=== PATIENT | male | born 1980 | race Caucasian/White ===

== ENCOUNTER 2020-10-29 09:56 | Day surgery (SDC) | payer MEDICAID, OTHER, SELFPAY ==
[~2020-10-29 09:56] MED LIST: Lactated Ringers 1,000 ML IV SCH; Lidocaine 1%/Sod Bicarbonate in NS 8.4% 1 ML Syringe IDERM PRN; Sodium Chloride 0.9% 10 ML Syringe FLUSH PRN
--- NOTE | 2020-10-29 12:15 | PCM.PREANE ---
Preanesthetic Assessment - Procedure Proposed Procedure: Open Umbilical Hernia repair with mesh. - Anesthesia/Transfusion/Family Hx Anesthesia History: Prior Anesthesia Without Reaction Family History of Anesthesia Reaction: No Transfusion History: No Prior Transfusion(s) Intubation History: Unknown - Review of Systems General: No Symptoms Pulmonary: No Symptoms Cardiovascular: No Symptoms (elevated cholesterol) Gastrointestinal: No Symptoms (occasional GERD-controlled) Neurological: No Symptoms (Lower back pain: 4/10) Other: Reports: None (History of blood clot one year ago.), Diabetes (Am blood sugar= 155 @ 1008), Sinus Problem (allergic rhinitis/history of epistaxis occasionally.) - Physical Assessment NPO Status Date: 10/28/20 NPO Status Time: 23:45 Vital Signs: Last Vital Signs Temp 36.7 C 10/29/20 10:17 Pulse 86 10/29/20 10:17 Resp 18 10/29/20 10:17 BP 148/90 H 10/29/20 10:17 Pulse Ox 95 10/29/20 10:17 Height: 1.91 m Weight: 137.892 kg ASA Class: 3 Mental Status: Alert & Oriented x3 Airway Class: Mallampati = 2 Dentition: Reports: Normal Dentition, Caries Thyro-Mental Finger Breadths: 3 Mouth Opening Finger Breadths: 3 ROM/Head Extension: Full Lungs: Clear to Auscultation, Normal Respiratory Effort Cardiovascular: Regular Rate, Regular Rhythm, No Murmurs - Lab Values: Laboratory Last Values POC Glucose 155 mg/dL (70-99) H 10/29/20 10:07 All labs reviewed and noted and within acceptable ranges to proceed with scheduled procedure. - Allergies Allergies/Adverse Reactions: Allergies Allergy/AdvReac Type Severity Reaction Status Date / Time peanut Allergy Cannot Verified 10/29/20 10:31 Remember - Anesthesia Plan Pre-Op Medication Ordered: None - Acknowledgements Anesthesia Type Planned: General Anesthesia Pt an Appropriate Candidate for the Planned Anesthesia: Yes Alternatives and Risks of Anesthesia Discussed w Pt/Guardian: Yes Pt/Guardian Understands and Agrees with Anesthesia Plan: Yes PreAnesthesia Questionnaire HEENT History: Reports: Allergic Rhinitis, Other (See Below) Other HEENT History: epistaxis Cardiovascular History: Reports: High Cholesterol Respiratory History: Reports: None Gastrointestinal History: Reports: Other (See Below) Other Gastrointestinal History: umbilical hernia Genitourinary History: Reports: None SUPERINTENDENT COMMUNICATIONS History: Reports: None Musculoskeletal History: Reports: Other (See Below) Other Musculoskeletal History: knee surgery-meniscus Neurological History: Reports: None Psychiatric History: Reports: None Endocrine/Metabolic History: Reports: Diabetes, Type II Hematologic History: Reports: Other (See Below) Other Hematologic History: blood clot in lower leg Immunologic History: Reports: None Oncologic (Cancer) History: Reports: None Dermatologic History: Reports: None - Infectious Disease History Infectious Disease History: Reports: None - Past Surgical History Head Surgeries/Procedures: Reports: None HEENT Surgical History: Reports: None Cardiovascular Surgical History: Reports: None Respiratory Surgical History: Reports: None GI Surgical History: Reports: None Female Surgical History: Reports: None Male Surgical History: Reports: None Endocrine Surgical History: Reports: None Neurological Surgical History: Reports: None Musculoskeletal Surgical History: Reports: Other (See Below) Other Musculoskeletal Surgeries/Procedures:: r knee surgery Oncologic Surgical History: Reports: None Dermatological Surgical History: Reports: None - SUBSTANCE USE Tobacco Use Status *Q: Never Tobacco User Recreational Drug Use History: No - HOME MEDS Home Medications: Home Meds Acetylcarnitine [Acetyl l-Carnitine] 500 mg PO DAILY 10/28/20 [History] Aspirin 81 mg PO DAILY 10/28/20 [History] Berberine 1 tab PO DAILY 10/28/20 [History] Calcium Carb/Vitamin D3/Vit K1 [Calcium + D Soft Chewable Tab] 1 tab PO DAILY 10/28/20 [History] Empagliflozin [Jardiance] 25 mg PO DAILY 10/28/20 [History] Magnesium Gluconate [Mag-G] 27 mg PO DAILY 10/28/20 [History] Molybdenum 1 tab PO DAILY 10/28/20 [History] Multivitamin 1 tab PO DAILY 10/28/20 [History] Zinc 50 mg PO DAILY 10/28/20 [History] glipiZIDE [Glipizide Xl] 5 mg PO DAILY 10/28/20 [History] metFORMIN [Glucophage] 1,000 mg PO BID 10/28/20 [History] - CURRENT (IN HOUSE) MEDS Current Meds: Current Medications Lactated Ringer's (Ringers, Lactated) 1,000 mls @ 125 mls/hr IV ASDIRECTED FABIENNE Stop: 10/29/20 23:00 Last Admin: 10/29/20 10:31 Dose: 125 mls/hr Documented by: Lidocaine/Sodium Bicarbonate (Lidocaine 1%/Sod Bicarbonate In Ns 8.4% 1 Ml Syringe) 0.25 ml IDERM ONETIME PRN PRN Reason: Prior to IV Start Stop: 10/29/20 18:00 Last Admin: 10/29/20 10:14 Dose: 0.25 ml Documented by: Sodium Chloride (Sodium Chloride 0.9% 10 Ml Syringe) 10 ml FLUSH ASDIRECTED PRN PRN Reason: Keep Vein Open Stop: 10/29/20 18:00
[2020-10-29] MEDS ORDERED: Ondansetron 4 MG/2 ML SDV ONE (12:20)
[2020-10-29] MEDS ORDERED: Rocuronium 50 MG/5 ML Vial ONE (12:20)
[2020-10-29] MEDS ORDERED: Propofol 200 MG/20 ML SDV ONE ×2 (12:21→12:56)
[2020-10-29] MEDS ORDERED: fentaNYL 250 MCG/5 ML SDV ONE (12:21)
[2020-10-29] MEDS ORDERED: Midazolam 1 MG/ML 2 ML SDV ONE (12:21)
[2020-10-29] MEDS ORDERED: ceFAZolin 1 GM Vial ONE (13:07)
[2020-10-29] MEDS ORDERED: HYDROmorphone 0.5 MG/0.5 ML Syringe ONE ×2 (13:10→13:11)
[2020-10-29] MEDS: Bupivacaine 0.5%/EPINEPHrine 1:200,000 50 ML MDV ONE ×2 (13:10→13:27)
[2020-10-29] MEDS ORDERED: Lactated Ringers 1,000 ML ONE (13:13)
[2020-10-29] MEDS ORDERED: Ketorolac 30 MG/ML SDV ONE (13:37)
[2020-10-29] MEDS ORDERED: Ondansetron 4 MG/2 ML SDV IVPUSH PRN (14:49)
[2020-10-29] MEDS ORDERED: fentaNYL 100 MCG/2 ML SDV IVPUSH PRN (14:49)
--- NOTE | 2020-10-29 14:49 | PCM.POSTAN ---
POST ANESTHESIA ASSESSMENT - MENTAL STATUS Mental Status: Alert, Oriented - VITAL SIGNS Vital Signs: Last Vital Signs Temp 36.7 C 10/29/20 10:17 Pulse 86 10/29/20 10:17 Resp 18 10/29/20 10:17 BP 148/90 H 10/29/20 10:17 Pulse Ox 95 10/29/20 10:17 - RESPIRATORY Respiratory Status: Respiratory Rate WNL, Airway Patent, O2 Saturation Stable, Supplemental Oxygen - CARDIOVASCULAR CV Status: Pulse Rate WNL, Blood Pressure Stable - GASTROINTESTINAL GI Status: No Symptoms - PAIN Pain Score: 0 - POST OP HYDRATION Hydration Status: Adequate & Stable
[2020-10-29] MEDS ORDERED: HYDROmorphone 0.5 MG/0.5 ML Syringe IVPUSH PRN (14:51)
--- NOTE | 2020-10-29 14:51 | PCM.PRNOTE ---
- Free Text/Narrative Note: Date: 10/29/2020 Operation: open repair of incarcerated umbilical hernia Surgeon: Carlos Howell MD Findings: incarcerated umbilical hernia containing omentum. Hernia defect measured approximately 3.5 x 2 cm. An 8 cm circular Ventralex patch was placed intraperitoneally and fascia was closed longitudinally with interrupted PDS suture. Detailed Report: Patient was taken to the operating room and placed on the table in supine position. Timeout was performed and general endotracheal anesthesia was initiated. Abdominal hair was clipped, and the abdomen was prepped and draped in usual sterile fashion. A periumbilical incision along the midline was made measuring 8 cm in length. A 10 blade scalpel was used to make an incision through skin down to subcutaneous tissue. Monopolar energy was used to dissect down to the fascia above and below the umbilicus. The hernia sac was carefully dissected free from overlying subcutaneous fat. First we dissected circumferentially. We then dissected the hernia sac around the edge of fascia. Finally, the overlying umbilical skin was freed from the apical aspect of the hernia sac. The herniated contents could not be reduced manually. The fascia was incised in order to loosen the site of herniation. The hernia sac was then entered and splayed open. The contents of the hernia consisted entirely of a large wad of omentum. After a relaxing incision in the fascia had been made, the omentum was from the sac and reduced manually into the abdomen. The hernia sac was excised at the level of fascia. The final defect measured approximately 3-1/2 x 2 cm. An 8 cm circular Ventralex patch was brought onto the field and placed intraperitoneally. Anchoring sutures were placed laterally, superiorly and inferiorly to secure the mesh to the anterior abdominal wall. Next, the fascia was closed longitudinally with several interrupted 0 PDS sutures. The dermis of the umbilicus was tacked down to the fascial closure to recreate the umbilicus. Interrupted deep dermal sutures were used to bring the edges of the incision together. Skin was closed with running 4-0 subcuticular Vicryl suture and dressed with Dermabond. A total of 20 cc 0.5% Marcaine with epinephrine was used for local anesthetic throughout the case. The patient tolerated the procedure well.
[2020-10-29] MEDS ORDERED: oxyCODONE 5 MG Tab PO ONE (15:19)
--- NOTE | 2020-10-29 15:32 | PCM48HPAN ---
Post Anesthesia Note - EVALUATION WITHIN 48HRS OF ANESTHETIC Vital Signs in Normal Range: Yes Patient Participated in Evaluation: Yes Respiratory Function Stable: Yes Airway Patent: Yes Cardiovascular Function Stable: Yes Hydration Status Stable: Yes Pain Control Satisfactory: Yes Nausea and Vomiting Control Satisfactory: Yes Mental Status Recovered: Yes Vital Signs: Last Vital Signs Temp 36.7 C 10/29/20 15:10 Pulse 77 10/29/20 15:10 Resp 14 10/29/20 15:10 BP 116/73 10/29/20 15:10 Pulse Ox 96 10/29/20 15:10
== END 2020-10-29 16:30 | disposition home or self-care (01) ==
LOC: JD.SDS 09:56
PROVIDERS: ATTEND Surgery
DX: K42.0 Umbilical hernia with obstruction, without gangrene (principal); E78.2 Mixed hyperlipidemia; E78.00 Pure hypercholesterolemia, unspecified; E11.9 Type 2 diabetes mellitus without complications; E66.9 Obesity, unspecified; Z68.38 Body mass index [BMI] 38.0-38.9, adult
CPT/HCPCS: 49587; 82947; A9270; J0690; J1170; J1885; J2250; J2370; J2405; J2704; J2710; J3010; J3490; J7120; 00750; C1781